=== PATIENT | female | born 1995 | race Caucasian/White ===

== ENCOUNTER 2020-02-19 18:02 | Inpatient (IN) ==
[2020-02-19] MEDS ORDERED: ONDANSETRON 4 MG/2 ML VIAL IV PRN (18:40)
[2020-02-19] MEDS: LACTATED RINGERS 1,000 ML IV SCH (19:09)
[2020-02-19 19:13] LABS: Basophils % 0.3 % (0.0-0.8); Eosinophils # 0.1 10*3/uL (0.0-0.87); Eosinophils % 0.9 % (0.00-10.9); Hematocrit 32.3 VOL% (35.7-47.0); Hemoglobin 10.8 GM/DL (12.0-16.0); Immature Granulocytes % 0.6 %; Immature Granulocytes Absolute 0.06 #; Lymphocytes # 1.8 10*3/uL (1.4-4.0); Lymphocytes % 18.4 % (21.3-54.2); Mean Corpuscular HGB Conc 33.4 GM/DL (32-36); Mean Corpuscular Volume 83.2 FL (87-102); Mean Platelet Volume 9.3 FL (9.6-12.0); Monocytes % 5.3 % (1.7-12.7); Neutrophils % 74.5 % (38.7-73.9); Platelet Count 175 T/CUMM (130-400); Red Blood Count 3.88 MC/CUMM (3.8-5.5); Red Cell Distribution Width 13.1 % (9.3-17.3)
[2020-02-19 19:34] LABS: Alanine Aminotransferase 17 U/L (13-56); Albumin 2.5 G/DL (3.4-5.0); Alkaline Phosphatase 149 U/L (45-117); Aspartate Amino Transferase 15 U/L (0-37); Bilirubin,Total < 0.39 MG/DL (0.2-1.0); Blood Urea Nitrogen 7 MG/DL (7-18); Calcium 8.9 MG/DL (8.5-10.1); Estimated Glom Filtration Rate 121 ML/MIN; Glucose 79 MG/DL (74-106); Osmolality,Calculated 273.5 MOS/KG (273-304)
[2020-02-20] MEDS: LACTATED RINGERS 1,000 ML IV SCH (01:02)
[2020-02-20] MEDS ORDERED: CITRIC ACID/SODIUM CITRATE 30 ML UDCUP PO ONE (06:00)
[2020-02-20] MEDS ORDERED: FAMOTIDINE 20 MG/2 ML VIAL IV ONE (06:00)
[2020-02-20] MEDS ORDERED: OXYTOCIN/LR 20 UNIT/1,000 ML BAG IV PRN (07:00)
[2020-02-20] MEDS ORDERED: ceFAZolin 2,000 MG in PREMIX 1 EACH IV ONE (07:00)
[2020-02-20] MEDS ORDERED: MORPHINE 10 MG/10 ML VIAL ONE (07:21)
[2020-02-20] MEDS ORDERED: fentaNYL 100 MCG/2 ML VIAL ONE (07:21)
[2020-02-20] MEDS ORDERED: KETOROLAC 30 MG/1 ML VIAL ONE (07:21)
[2020-02-20] MEDS ORDERED: PHENYLEPHRINE 1 MG/10 ML SYRINGE IV ONE (07:21)
[2020-02-20] MEDS ORDERED: BUPIVACAINE SPINAL 0.75% 2 ML AMP SPINAL ONE (07:22)
[2020-02-20] MEDS ORDERED: CARBOPROST TROMETHAMINE 250 MCG/ML AMP IM ONE (07:37)
[2020-02-20] MEDS ORDERED: METHYLERGONOVINE 0.2 MG/1 ML AMP ONE (07:37)
[2020-02-20] MEDS ORDERED: OXYTOCIN/LR 20 UNIT/1,000 ML BAG IV ONE ×2 (07:37→09:20)
[2020-02-20] MEDS ORDERED: miSOPROStoL 200 MCG TABLET ONE (07:37)
[2020-02-20] MEDS ORDERED: ONDANSETRON 4 MG/2 ML VIAL IV PRN (09:20)
[2020-02-20] MEDS ORDERED: ACETAMINOPHEN 325 MG TABLET PO PRN (09:20)
[2020-02-20] MEDS ORDERED: RHO(D) IMMUNE GLOBULIN 300 MCG SYRINGE IM ONE (09:20)
[2020-02-20] MEDS ORDERED: LACTATED RINGERS 1,000 ML IV SCH (09:30)
[2020-02-20] MEDS ORDERED: ceFAZolin 1,000 MG in SYRINGE 1 EACH IV SCH (09:30)
[2020-02-20 09:49] LABS: Apearance,Urine CLEAR (Clear); Bacteria,Urine Occasional /HPF (Few); Bilirubin,Urine Negative (Negative); Blood, Urine Negative (Negative); Glucose,Urine (UA) Negative (Negative); Ketones,Urine Negative (Negative); Mucus,Urine Occasional /LPF (Occasional); Nitrite,Urine Positive (Negative); Protein,Urine Negative; RBC,Urine 1 /HPF (0-4); Squamous Epithelial Cell,Urine Occasional /HPF (0-10); Urine Color Yellow (Yellow); Urine Specific Gravity 1.011 (1.001-1.035); Urine Urobilinogen < 2.0 EU/DL (0.2-1.0); WBC,Urine 2 /HPF (0-6)
[2020-02-20] MEDS ORDERED: KETOROLAC 30 MG/1 ML VIAL IV PRN (13:55)
[2020-02-20] MEDS ORDERED: SODIUM CHLORIDE 0.9% 50 ML IV ONE (16:39)
[2020-02-20] MEDS: ceFAZolin 1,000 MG in SYRINGE 1 EACH IV SCH (16:48)
[2020-02-20 17:01] LABS: Basophils % 0.3 % (0.0-0.8); Eosinophils # 0.1 10*3/uL (0.0-0.87); Eosinophils % 0.6 % (0.00-10.9); Hematocrit 28.9 VOL% (35.7-47.0); Hemoglobin 9.4 GM/DL (12.0-16.0); Immature Granulocytes % 0.3 %; Immature Granulocytes Absolute 0.03 #; Lymphocytes # 1.6 10*3/uL (1.4-4.0); Lymphocytes % 18.3 % (21.3-54.2); Mean Corpuscular HGB Conc 32.5 GM/DL (32-36); Mean Platelet Volume 9.4 FL (9.6-12.0); Monocytes % 3.7 % (1.7-12.7); Neutrophils % 76.8 % (38.7-73.9); Platelet Count 139 T/CUMM (130-400); Red Blood Count 3.44 MC/CUMM (3.8-5.5); Red Cell Distribution Width 13.2 % (9.3-17.3); White Blood Count 8.8 T/CUMM (4-12)
[2020-02-20] MEDS: IBUPROFEN 800 MG TABLET PO PRN (23:53)
[2020-02-21] MEDS: ceFAZolin 1,000 MG in SYRINGE 1 EACH IV SCH (00:43)
[2020-02-21] MEDS: DOCUSATE SODIUM 100 MG CAPSULE PO SCH ×3 (01:08→19:50)
[2020-02-21 07:15] LABS: Basophils % 0.4 % (0.0-0.8); Eosinophils # 0.2 10*3/uL (0.0-0.87); Eosinophils % 1.8 % (0.00-10.9); Hematocrit 31.8 VOL% (35.7-47.0); Hemoglobin 10.1 GM/DL (12.0-16.0); Immature Granulocytes % 0.5 %; Immature Granulocytes Absolute 0.05 #; Lymphocytes # 1.8 10*3/uL (1.4-4.0); Lymphocytes % 16.9 % (21.3-54.2); Mean Corpuscular HGB Conc 31.8 GM/DL (32-36); Mean Corpuscular Volume 85.3 FL (87-102); Mean Platelet Volume 9.3 FL (9.6-12.0); Monocytes % 4.8 % (1.7-12.7); Neutrophils % 75.6 % (38.7-73.9); Platelet Count 183 T/CUMM (130-400); Red Blood Count 3.73 MC/CUMM (3.8-5.5); Red Cell Distribution Width 13.6 % (9.3-17.3); White Blood Count 10.8 T/CUMM (4-12)
[2020-02-21] MEDS: MAGNESIUM HYDROXIDE SUSP 30 ML UDCUP PO PRN ×2 (08:59→19:50)
[2020-02-21] MEDS: MULTIVITAMIN (PRENATAL) TABLET PO SCH (08:59)
[2020-02-21] MEDS: IBUPROFEN 800 MG TABLET PO PRN ×2 (09:00→19:50)
[2020-02-21] MEDS: SIMETHICONE CHEW 80 MG TABLET PO PRN (09:00)
[2020-02-22] MEDS: IBUPROFEN 800 MG TABLET PO PRN (06:42)
[2020-02-22 07:25] VITALS: BP 115/80
[2020-02-22] MEDS: SIMETHICONE CHEW 80 MG TABLET PO PRN (09:30)
[2020-02-22] MEDS: DOCUSATE SODIUM 100 MG CAPSULE PO SCH (09:30)
[2020-02-22] MEDS: MAGNESIUM HYDROXIDE SUSP 30 ML UDCUP PO PRN (09:30)
[2020-02-22] MEDS: MULTIVITAMIN (PRENATAL) TABLET PO SCH (09:30)
== END 2020-02-22 10:00 | disposition home or self-care (01) | DRG 785 ==
LOC: N.LD 18:02 → N.OB 02-20 13:01
PROVIDERS: ADMIT Obstetrics & Gynecology; ATTEND Obstetrics & Gynecology